=== PATIENT | female | born 1985 | race Caucasian/White ===

== ENCOUNTER 2016-11-22 18:10 | Emergency (ER) ==
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
[2016-11-22 19:37] VITALS: BP 141/97
--- NOTE | 2016-11-22 19:38 | Diag Imaging Result Document ---
PROCEDURE NAME: HEAD W/O CONTRAST - 11/22/2016 CT HEAD WITHOUT CONTRAST: FINDINGS: No comparison exam. A dose reduction protocol was used. There is a large craniotomy defect on the right involving portions of the temporal, frontal, and parietal skull. There is a low density subdural fluid collection at the craniotomy site which varies in thickness up to 9 mm. This may represent postsurgical change or an old subdural hematoma. There is no evidence of acute intracranial hemorrhage. There is apparent mild mass effect on the right lateral ventricle and there is midline shift up to 8 mm. There is no discrete etiology for the mass effect/midline shift apparent , other than the low density subdural collection mentioned above. There are some nonspecific low density in white matter at the bilateral inferior frontal lobes. This may relate to encephalomalacia or possibly mild edema. There is no other discrete edema identified. There is no skull fracture identified. IMPRESSION: 1. Postsurgical changes with large craniotomy defect on the right. Low density subdural fluid collection at the craniotomy site which may represent postsurgical change or old subdural hematoma. This measures up to 8 mm in thickness. 2. Mass effect on the right lateral ventricle and midline shift to the left of 8 mm, which may relate to the low density subdural collection and therefore may be unrelated to the recent trauma. There is no other etiology for the mass effect/midline shift apparent. 3. Encephalomalacia versus mild edema in white matter at bilateral inferior frontal lobes. 4. No acute hemorrhage. No specific acute injury identified. Verbal results provided to [place] in the Emergency Department at 7:[address] on 11/22. [facility]
== END 2016-11-22 19:36 | disposition home or self-care (01) ==
LOC: ED 18:10
DX: S09.90XA Unspecified injury of head, initial encounter (principal); Z76.0 Encounter for issue of repeat prescription; W22.8XXA Striking against or struck by other objects, initial encounter
CPT/HCPCS: 70450